=== PATIENT | male | born 1995 ===

== ENCOUNTER 2024-06-19 06:13 | Day surgery (SDC) | payer OTHER ==
[~2024-06-19] VITALS: Ht 180.3 cm; Wt 90.9 kg
[~2024-06-19 06:13] MED LIST: Bactrim Ds Tab1 EACH PO; CEPH500 PO; HYDACE5 PO
[2024-06-19] MEDS ORDERED: CeFAZolin Sodium 2,000 MG VIAL ONE (06:18)
[2024-06-19] MEDS ORDERED: FentaNYL Citrate 50 MCG/ML 2 ML Injection ONE (06:38)
[2024-06-19] MEDS ORDERED: Dexamethasone Sod Phos 10 MG/ML 1ML VIAL ONE (06:38)
[2024-06-19] MEDS ORDERED: Rocuronium Bromide 10 MG/ML 5ML Injection IV ONE (06:38)
[2024-06-19] MEDS ORDERED: Ondansetron HCl 2 MG / ML 2ML Vial ONE (06:38)
[2024-06-19] MEDS ORDERED: propofoL 20 ML IV ONE ×2 (06:39→07:28)
[2024-06-19] MEDS ORDERED: Midazolam HCl 1MG / ML 2ML Vial ONE (06:39)
[2024-06-19] MEDS ORDERED: Ketorolac Tromethamine 30mg Vial ONE (06:39)
[2024-06-19] MEDS ORDERED: Bupivacaine 0.5% W/EPI 1:200000 SDV 30 ML Vial ONE (07:00)
[2024-06-19] MEDS ORDERED: Lactated Ringer's 1,000 ML IV ONE ×2 (07:20→09:53)
--- NOTE | 2024-06-19 07:27 | NUR ---
06/19/24 0727 KAM COLIN 7008 TIMEOUT FOR NERVE BLOCK AT BEDSIDE WITH ANESTHESIA, THIS RN, AND PT. SPO2 MONITORED T/O PROCEDURE, SATS WNL ON RA.
[2024-06-19] MEDS ORDERED: Sugammadex Sodium 200 MG/2ML SDV (100 MG/ML) ONE (07:40)
[2024-06-19] MEDS ORDERED: SuccINYLCHOLINE Chloride 100 MG/5 ML 5MLSYR ONE (07:41)
[2024-06-19] MEDS ORDERED: HYDROcodone 5-APAP 325 TAB ONE (09:36)
[2024-06-19 09:59] VITALS: BP 134/77
== END 2024-06-19 10:00 | disposition home or self-care (01) ==
LOC: ORSCSDS 06:13
PROVIDERS: Podiatrist Foot & Ankle Surgery
PROC: 0LQP0ZZ Repair Left Lower Leg Tendon, Open Approach (ICD-10-PCS; principal; 2024-06-19 07:30)
DX: S86.012A Strain of left Achilles tendon, initial encounter (principal); W18.42XA Slipping, tripping and stumbling without falling due to stepping into hole or opening, initial encounter; Z87.891 Personal history of nicotine dependence
CPT/HCPCS: A9270; C1713; J0330; J0690; J1100; J1885; J2250; J2405; J2704; J3010; J7120